=== PATIENT | female | born 1960 | race Caucasian/White ===

== ENCOUNTER 2021-07-26 08:54 | Day surgery (SDC) | payer OTHER | END 2021-07-26 12:19 | disposition home or self-care (01) | LOC: FER 08:54 → FOR 09:24 → FMS 12:19 | DX: T18.128A Food in esophagus causing other injury, initial encounter (principal); R07.89 Other chest pain; G40.909 Epilepsy, unspecified, not intractable, without status epilepticus; Z20.822 Contact with and (suspected) exposure to COVID-19 | CPT/HCPCS: G0378; J1610; J2250; J7120; U0002 ==